=== PATIENT | female | born 1940 | race Caucasian/White ===

== ENCOUNTER 2023-06-26 14:26 | Outpatient (CLI) | payer MEDICARE, BC, SELFPAY ==
--- NOTE | ~2023-06-26 | MR_ITS ---
MRI of the cervical spine Clinical History: Left-sided weakness Technique: Axial T2-weighted and gradient images, and sagittal T1-weighted, T2-weighted, and STIR janie ges were acquired. Following intravenous administration of 12 cc MultiHance gadolinium, T1-weighted f at-sat imaging was performed in the axial and sagittal planes. Findings: There is prominent reversal normal cervical lordosis. No acute fracture or subluxation iden tified. No suspicious bone marrow signal abnormality seen. At C2-C3, there is no disc bulge or herniation. There is facet arthropathy bilaterally. No spinal can al stenosis, cord compression, or left neural foraminal narrowing. Probable mild right neural foramin al narrowing. At C3-C4, there is mild disc bulge with advanced bilateral facet arthropathy, right worse than left. There is bilateral neural foraminal narrowing. No farhana spinal canal stenosis or cord compression. At C4-C5, there is disc ossify complex without canal stenosis or cord compression. There is bilateral facet arthropathy, with probable relative preservation of bilateral neural foramina. At C5-C6, there is moderate degenerative disc narrowing. There is disc osteophyte compress with moder ate canal stenosis and mild cord compression. There is bilateral facet arthropathy with probable mild bilateral neural foraminal narrowing, right worse than left. At C6-C7, there is severe degenerative disc narrowing. There is disc osteophyte complex, with moderat e canal stenosis and mild cord compression. Probable preservation of bilateral neural foramina. No definite abnormal signal seen in the spinal cord. Paravertebral soft tissues are unremarkable. No abnormal postcontrast enhancement identified. Impression: Prominent reversal of the normal cervical lordosis, with moderate degenerative spondylitic changes, a s detailed above. Reviewed, dictated and finalized at [facility] M. Impression: Prominent reversal of the normal cervical lordosis, with moderate degenerative spondylitic changes, as detailed above.
== END 2023-06-26 14:27 ==
LOC: MICIMG 14:29
DX: M47.892 Other spondylosis, cervical region (principal)
CPT/HCPCS: 72156; A9577